=== PATIENT | female | born 1965 | race Two or more races ===

== ENCOUNTER → 2020-07-17 14:16 | Outpatient (BNVA) | payer MEDICAID, SELFPAY | PROVIDERS: PCP Internal Medicine; Visit Provider Nurse Practitioner Family ==

== ENCOUNTER 2020-08-03 14:05 | Outpatient (REF) | payer MEDICAID, SELFPAY | END 2020-08-03 14:06 | disposition home or self-care (01) | LOC: HO.LAB 14:05 | PROVIDERS: Visit Provider Internal Medicine | DX: Z20.822 Contact with and (suspected) exposure to COVID-19 (principal) | CPT/HCPCS: 36415; C9803; U0003; U0005 ==

== ENCOUNTER → 2020-08-07 14:08 | Outpatient (BNVA) | payer MEDICAID, SELFPAY | PROVIDERS: PCP Internal Medicine; Visit Provider Nurse Practitioner Family ==

== ENCOUNTER 2021-04-08 12:52 | Outpatient (REF) | payer MEDICARE, MEDICAID, SELFPAY ==
[2021-04-08 13:55] LABS: Blood Urea Nitrogen 11 mg/dL (9-16); Estimated Glomerular Filt Rate > 60
== END 2021-04-08 12:53 | disposition home or self-care (01) ==
LOC: HO.LAB 12:52
PROVIDERS: PCP Internal Medicine; Visit Provider Surgery Vascular Surgery
DX: I65.23 Occlusion and stenosis of bilateral carotid arteries (principal)
CPT/HCPCS: 36415; 82565; 84520

== ENCOUNTER → 2021-09-18 13:05 | Outpatient (BNVA) | payer MEDICARE, MEDICAID, SELFPAY | PROVIDERS: PCP Internal Medicine; Referring Provider Internal Medicine; Visit Provider Nurse Practitioner Family | DX: K62.5 Hemorrhage of anus and rectum (principal); K59.01 Slow transit constipation | CPT/HCPCS: 99212 ==

== ENCOUNTER → 2021-10-01 10:41 | Outpatient (BNVA) | payer MEDICARE, MEDICAID, SELFPAY | PROVIDERS: PCP Internal Medicine; Referring Provider Internal Medicine; Visit Provider Nurse Practitioner Family | DX: Z13.89 Encounter for screening for other disorder (principal) ==

== ENCOUNTER 2022-07-28 16:56 | Emergency (ER) | payer OTHER, MEDICAID, SELFPAY ==
--- NOTE | ~2022-07-28 | US_ITS ---
EXAMINATION: US PELVIS CLINICAL INFORMATION: Lower abdominal pain COMPARISON: None TECHNIQUE: Ultrasound of the pelvis is performed using both transabdominal and transvaginal transducers along with Doppler. Transvaginal imaging is performed due to inadequate visualization transabdominally. FINDINGS: The uterus measures 4.2 cm in length and 3.1 x 4.4 cm in AP and transverse dimensions. Endometrial stripe measures 0.3 cm in thickness, and there is trace fluid along the endometrial cavity. There is a heterogeneous right-sided uterine mass measuring 1.1 x 0.8 x 1.2 cm, favoring a fibroid. The bilateral ovaries are not visualized on transabdominal or transvaginal imaging. No appreciable free fluid. US/US pelvic and transvaginal IMPRESSION: 1. Trace fluid along the endometrial cavity. 2. Uterine fibroid measuring up to 1.2 cm. 3. Ovaries are not visualized.
--- NOTE | ~2022-07-28 | CT_ITS ---
EXAMINATION: CT ABDOMEN AND PELVIS WITH CONTRAST CLINICAL INFORMATION: CVA tenderness and dysuria COMPARISON: Ultrasound pelvis 07/28/2022 TECHNIQUE: Multidetector volumetric images were obtained from the superior aspect of the liver through the pubic symphysis following administration 85 mL of Omnipaque 350 intravenous contrast. Sagittal and coronal reformatted images were obtained on the technologist's workstation. Oral contrast: No This CT examination was performed using dose optimization techniques as appropriate, variously including the following: *Automated exposure control *Adjustment of mA and/or kV according to patient size (this includes techniques or standardized protocols for targeted exams where dose is matched to indication/reason for exam; i.e. extremities or head) *Use of iterative reconstruction technique DLP: 270 mGy-cm FINDINGS: LUNG BASES: The visualized lung bases are unremarkable. LIVER, GALLBLADDER, AND BILIARY TREE: The liver is normal in size, shape, and attenuation. No focal hepatic lesion or biliary ductal dilatation is present. The gallbladder is unremarkable with no evidence of radiopaque gallstones, gallbladder wall thickening, or obvious pericholecystic inflammatory changes. PANCREAS: Unremarkable. SPLEEN: Unremarkable. ADRENAL GLANDS: Unremarkable. KIDNEYS AND URETERS: The kidneys are normal in size, shape, and attenuation. No hydronephrosis, hydroureter, or calculi seen. No perinephric stranding. BLADDER: Poorly filled GASTROINTESTINAL TRACT: A bowel anastomosis is present in the left lower quadrant there is no evidence of bowel obstruction. The small and large bowel are unremarkable. The appendix is unremarkable. ABDOMINAL WALL: No significant hernia is appreciated. LYMPH NODES: Normal. VASCULAR: Unremarkable. PELVIC VISCERA: Unremarkable. OSSEOUS STRUCTURES: Unremarkable. CT/CT abdomen pelvis w IV con IMPRESSION: A cause for the patient's CVA tenderness and dysuria has not been found. Fleischner guidelines were followed.
[2022-07-28 17:20] VITALS: BP 184/94; PULSE 99; RESP 18; TEMP 36.8; O2SAT 98; BMI 19.2
--- NOTE | 2022-07-28 17:20 | ED.ABDPAIN ---
HPI - Abdominal Pain General Chief Complaint: Abdominal Pain <MIRELLA Mascorro - Last Filed: 07/28/22 17:24> Stated Complaint: lower abd pain <MIRELLA Mascorro - Last Filed: 07/28/22 17:24> Time Seen by Provider: 07/28/22 22:18 <MIRELLA Mascorro - Last Filed: 07/28/22 17:24> Source: patient <MIRELLA Lyn - Last Filed: 07/29/22 01:01> Mode of arrival: ambulatory <MIRELLA Lyn - Last Filed: 07/29/22 01:01> Limitations: no limitations <MIRELLA Lyn Last Filed: 07/29/22 01:01> History of Present Illness HPI narrative: 57-year-old female with history of bowel obstruction, rectal bleeding secondary to hemorrhoids presents with nausea burning with urination that started a few days ago and b/l flank pain and suprapubic abdominal pain and ?pressure in her whole genital area? that started at 02:00 this morning, had similar sx last week they resolved on their own. Patient reports increased urinary urgency and frequency the past 2 days as well. Patient states that the pain is 10/10 and that nothing helps it. Patient has never experienced this before. Patient denies history of kidney stones. Patient denies blood in urine. Patient denies vomiting, headache, chest pain, shortness of breath, bowel changes, fevers, chills, no vaginal discharge. Not sexually active. . <MIRELLA Lyn - Last Filed: 07/29/22 01:01> Related Data Home Medications: Home Medications Medication Instructions Recorded Confirmed albuterol sulfate 90 mcg/actuation inhalation 09/18/21 aerosol inhaler (Ventolin HFA) aspirin 81 mg tablet,delayed 81 mg PO DAILY 09/18/21 release (Adult Aspirin Regimen) jefltsrdnu-kkqclvnzdeljv-ksmtcbqu tab PO 09/18/21 50 mg-325 mg-40 mg tablet fluticasone propionate 44 inhalation 09/18/21 mcg/actuation HFA aerosol inhaler (Flovent HFA) hydrochlorothiazide 12.5 mg tablet mg PO 09/18/21 lidocaine 5 % topical patch patch transdermal 09/18/21 lorazepam 0.5 mg tablet mg PO 09/18/21 naloxone 4 mg/actuation nasal intranasal 09/18/21 spray (Narcan) tramadol 50 mg tablet mg PO 09/18/21 Previous Rx's Medication Instructions Recorded docusate sodium 100 mg capsule 100 mg PO BEDTIME #90 caps 09/18/21 hydrocortisone 2.5 % topical cream 1 appl ME BID-QID PRN hemorrhoids 09/18/21 with perineal applicator #30 grams (Proctosol HC) cefuroxime axetil 250 mg tablet 250 mg PO BID 7 days #14 tabs 07/29/22 <MIRELLA Mascorro - Last Filed: 07/28/22 17:24> Allergies/Adverse Reactions: Allergies Allergy/AdvReac Type Severity Reaction Status Date / Time pneumococcal vaccine Allergy Severe SWELLING Verified 07/28/22 17:25 [PNEUMOCOCCAL VACCINE] topiramate Allergy Mild Unknown Verified 07/28/22 17:25 prednisone [PREDNISONE] AdvReac Unknown NAUSEA & Verified 07/28/22 17:25 VOMITING ANDREA Allergy Mild RASH Uncoded 09/18/21 13:16 <MIRELLA Mascorro - Last Filed: 07/28/22 17:24> Review of Systems Review of Systems Constitutional : No Weight loss, No Fever, No Chills, No Fatigue, No Malaise ENT/Mouth : No sore throat, No Rhinorrhea Eyes: No Eye Pain, No Swelling, No Redness Cardiovascular : No Chest Pain, No SOB, No Dyspnea on Exertion, No Orthopnea, No Edema, No Palpitations Respiratory : No Cough, No Sputum, No Wheezing Gastrointestinal : No Nausea, No Vomiting, No Diarrhea, No Constipation, + abdominal Pain, No Hematochezia, No Melena Genitourinary : + Dysuria, + Urinary Frequency, No Hematuria, Musculoskeletal : No joint pain, No Myalgias, No Joint Swelling Skin : No Skin Lesions, No rash Neuro : No Weakness, No Numbness, No Dizziness, No Headache Psych : No Anxiety/Panic, No Depression All other systems reviewed and are negative <MIRELLA Lyn Last Filed: 07/29/22 01:01> Yes all other systems are reviewed and are negative <MIRELLA Lyn Last Filed: 07/29/22 01:01> PMFSH Past Medical History Attestation statement: The following information was validated with the patient. <MIRELLA Lyn - Last Filed: 07/29/22 01:01> Source: old records reviewed and nursing notes reviewed <MIRELLA Lyn - Last Filed: 07/29/22 01:01> Medical History: Medical History Bowel obstruction <MIRELLA Mascorro - Last Filed: 07/28/22 17:24> Surgical History: Surgical History H/O colonoscopy History of esophagogastroduodenoscopy (EGD) <MIRELLA Mascorro - Last Filed: 07/28/22 17:24> Family History Family History: Family History Maternal Aunt HTN (hypertension) Diabetes Arthritis Asthma Maternal Uncle Arthritis Asthma Diabetes HTN (hypertension) <MIRELLA Mascorro - Last Filed: 07/28/22 17:24> Social History Social History: Social History Household Members: Family Alcohol intake: current Alcohol intake frequency: does not drink Advance Directives: No Advance Directives Information Provided: Yes <MIRELLA Mascorro - Last Filed: 07/28/22 17:24> Physical Exam ED Vital Signs: Vital Signs - 24 hr 07/28/22 17:20 Temperature 98.2 F Pulse Rate 99 Respiratory Rate 18 Blood Pressure 184/94 H Pulse Oximetry 98 Oxygen Delivery Method Room Air BMI result Body Mass Index 19.2 <MIRELLA Mascorro - Last Filed: 07/28/22 17:24> Vital Signs - 24 hr 07/28/22 17:20 Temperature 98.2 F Pulse Rate 99 Respiratory Rate 18 Blood Pressure 184/94 H Pulse Oximetry 98 Oxygen Delivery Method Room Air BMI result Body Mass Index 19.2 vss <MIRELLA Lyn - Last Filed: 07/29/22 01:01> Appearance: Alert.? Oriented X3.? No acute distress.? Head: Normocephalic, atraumatic, no step-offs or deformities Eyes: Pupils equal, round and reactive to light.? ENT: Pharynx normal.? Neck: Normal inspection.? Neck supple.? CVS: Normal heart rate and rhythm.? Pulses normal.? Respiratory: No respiratory distress.? Breath sounds normal.? Abdomen: Soft and + suprapubic abd discomfort .? Skin: Skin warm and dry.? Normal skin color.? Normal skin turgor.? Extremities: No lower extremity edema.? No calf ttp. 5/5 strength to bilateral upper and lower extremities Back: + CVA tenderness bilaterally Sensative exam: deferred patient refusing Neuro: Oriented X 3.? No motor deficit.? No sensory deficit. CN 2-12 intact <MIRELLA Lyn - Last Filed: 07/29/22 01:01> Course Course Course Narrative: RME - 57 y/o female with history of bowel obstruction, rectal bleeding who presents to the ER for evaluation of lower abdominal pain that started 1 week ago, went away and then returned acutely last night. +nausea but no vomiting or diarrhea. Reports the pain is in the suprapubic area, pelvic area and radiates to the rectum. +rectal bleeding with hx hemorrhoids. +dysuria, +hematuria. No vaginal discharge, not sexually active. Plan: will need examination and assessment in main ER - labs and UA ordered. <MIRELLA Mascorro - Last Filed: 07/28/22 17:24> Reevaluation(s) Reevaluation #1: CBC appears to be around patient's baseline. Chemistry with no acute findings requiring intervention. Beta hCG negative. Patient's urine with small amount of leukocyte esterases. Patient is symptomatic will treat for UTI. CT of the abdomen and pelvis unable to identify cause for patient's CVA tenderness and dysuria. Ultrasound pelvic and transvaginal with trace fluid along the endometrial cavity. Uterine fibroid measuring up to 1.2 cm. Ovaries not visualized. Patient reports improving pain however still has some pain. Patient driving will not given narcotic for this reason. She denied bleeding to this TN-C from rectum and from vaginal region. I did discuss this case with my attending doctors Anaya, because on my evaluation patient's pain was very mild to lower abdomen. I do not suspect ovarian torsion. Patient reports diffuse mild pain to lower abdomen, it is not unilateral, low suspicion for acute ovarian torsion. Patient sprain improved with Toradol patient appears comfortable. No need for repeat Doppler study due to patient's presentation, history and low suspicion for torsion. Will have her follow-up with OBGYN. Educated patient on diagnosis and treatment plan, answered all question, patient verbalizes understanding. At this time patient will be discharged home, advised to return with new or worsening symptoms. Educated on worrisome signs and symptoms and when to return. At this time I feel comfortable discharge home. <MIRELLA Lyn - Last Filed: 07/29/22 01:01> Time: 00:32 <MIRELLA Lyn - Last Filed: 07/29/22 01:01> Reevaluation #2: Again at time of discharge patient reports symptomatic improvement tells me it has not completely gone. Refusing a sensitive exam adamantly. I have asked her now 3 x <MIRELLA Lyn - Last Filed: 07/29/22 01:01> Medical Decision Making Medical Decision Making MDM Narrative: 57-year-old female presenting for dysuria, urinary urgency and frequency, abdominal pain, back pain since early this morning. Physical exam significant for CVA tenderness, suprapubic tenderness. Differentials include cystitis versus nephrolithiasis versus pyelonephritis. Unlikley appendicitis, acute abdomen, diverticulitis, pancreatitis Plan: Labs, imaging, pain management <MIRELLA Lyn Last Filed: 07/29/22 01:01> Differential Diagnosis Differential Diagnoses: The differential diagnosis associated with the presentation includes <MIRELLA Lyn Last Filed: 07/29/22 01:01> Differentials include cystitis versus nephrolithiasis versus pyelonephritis. Unlikley appendicitis, acute abdomen, diverticulitis, pancreatitis <MIRELLA Lyn Last Filed: 07/29/22 01:01> Admission/Observation Consideration of admission/observation: Escalation of care including admission/observation considered <MIRELLA Lyn Last Filed: 07/29/22 01:01> Less likely <MIRELLA Lyn - Last Filed: 07/29/22 01:01> Lab Data [facility] Lab Attestation statement: I reviewed the patient's lab results. <MIRELLA Lyn - Last Filed: 07/29/22 01:01> Result Diagrams: 07/28/22 17:48 07/28/22 17:48 <MIRELLA Mascorro - Last Filed: 07/28/22 17:24> Labs: Lab Results 07/28/22 07/28/22 07/28/22 Range/Units 17:48 17:48 23:08 WBC 6.0 (4.8-10.8) X10*3/uL RBC 4.58 (4.20-5.50) X10*6/uL Hgb 13.2 (12.0-16.0) g/dl Hct 40.4 (37.0-47.0) % MCV 88.2 (80.0-98.0) fL MCH 28.8 (27.0-33.0) pg MCHC 32.7 (31.0-35.0) g/dl RDW 12.1 (11.0-16.0) % Plt Count 232 (160-400) X10*3/uL MPV 12.0 (9.4-12.3) fL Immature Gran % (Auto) 0.2 (0.0-0.4) % Neut % (Auto) 58.2 (45-73) % Lymph % (Auto) 29.9 (20-40) % [place] % (Auto) 9.2 (2-11) % Eos % (Auto) 2.0 (0-4) % Baso % (Auto) 0.5 (0-2) % Lymph # (Auto) 1.8 (1.2-4.9) X10*3/uL [place] # (Auto) 0.6 (0.1-1.2) X10*3/uL Eos # (Auto) 0.1 (0.0-0.4) X10*3/uL Baso # (Auto) 0.0 (0.0-0.2) X10*3/uL Abs Immat Gran (auto) 0.01 (0.00-0.03) X10*3/uL Absolute Neuts (auto) 3.5 (2.0-8.3) x10*3/uL Absolute Nucleated RBC 0.000 (0.0-0.012) X10*3/uL Nucleated RBC % (auto) 0.0 (0.0-0.2) /100WBC Sodium 142 (135-145) mmol/L Potassium 3.8 (3.3-5.1) mmol/L Chloride 108 (96-108) mmol/L Carbon Dioxide 23 (22-29) mmol/L Anion Gap 15 (12-20) BUN 16 (9-16) mg/dL Creatinine 0.77 (0.5-1.4) mg/dL Estim Creat Clear Calc 61.3 Estimated GFR > 60 Random Glucose 106 (60-115) mg/dL Calcium 9.3 (8.4-10.2) mg/dL Magnesium 2.3 (1.6-2.6) mg/dL Total Bilirubin 0.4 (0.0-1.0) mg/dL Direct Bilirubin < 0.2 (0.0-0.5) mg/dL AST 20 (5-31) U/L ALT 16 (0-31) U/L Alkaline Phosphatase 108 (39-117) U/L Total Protein 7.2 (6.5-8.0) g/dL Albumin 4.5 (3.5-5.0) g/dL Beta HCG, Quant < 2 mIU/mL Urine Color Yellow Urine Appearance Clear Urine pH 5.0 (5.0-9.0) Ur Specific [place] >= 1.030 H (1.005-1.025) Urine Protein Trace (Neg-Trace) mg/dL Urine Glucose (UA) Negative (Negative) mg/dL Urine Ketones 15 (Negative) mg/dL Urine Blood Negative (Negative) Urine Nitrite Negative (Negative) Ur Leukocyte Esterase Small (1+) H (Negative) Urine RBC 3-5 H (0-2) /HPF Urine WBC 6-10 H (0-5) /HPF Ur Squamous Epith Cells 3-5 (0-2) /HPF Calcium Oxalate Crystal Present Urine Bacteria None Seen (None Seen) Hyaline Casts 0-2 (0-2) /LPF <MIRELLA Mascorro - Last Filed: 07/28/22 17:24> Lab Results 07/28/22 07/28/22 07/28/22 Range/Units 17:48 17:48 23:08 WBC 6.0 (4.8-10.8) X10*3/uL RBC 4.58 (4.20-5.50) X10*6/uL Hgb 13.2 (12.0-16.0) g/dl Hct 40.4 (37.0-47.0) % MCV 88.2 (80.0-98.0) fL MCH 28.8 (27.0-33.0) pg MCHC 32.7 (31.0-35.0) g/dl RDW 12.1 (11.0-16.0) % Plt Count 232 (160-400) X10*3/uL MPV 12.0 (9.4-12.3) fL Immature Gran % (Auto) 0.2 (0.0-0.4) % Neut % (Auto) 58.2 (45-73) % Lymph % (Auto) 29.9 (20-40) % [place] % (Auto) 9.2 (2-11) % Eos % (Auto) 2.0 (0-4) % Baso % (Auto) 0.5 (0-2) % Lymph # (Auto) 1.8 (1.2-4.9) X10*3/uL [place] # (Auto) 0.6 (0.1-1.2) X10*3/uL Eos # (Auto) 0.1 (0.0-0.4) X10*3/uL Baso # (Auto) 0.0 (0.0-0.2) X10*3/uL Abs Immat Gran (auto) 0.01 (0.00-0.03) X10*3/uL Absolute Neuts (auto) 3.5 (2.0-8.3) x10*3/uL Absolute Nucleated RBC 0.000 (0.0-0.012) X10*3/uL Nucleated RBC % (auto) 0.0 (0.0-0.2) /100WBC Sodium 142 (135-145) mmol/L Potassium 3.8 (3.3-5.1) mmol/L Chloride 108 (96-108) mmol/L Carbon Dioxide 23 (22-29) mmol/L Anion Gap 15 (12-20) BUN 16 (9-16) mg/dL Creatinine 0.77 (0.5-1.4) mg/dL Estim Creat Clear Calc 61.3 Estimated GFR > 60 Random Glucose 106 (60-115) mg/dL Calcium 9.3 (8.4-10.2) mg/dL Magnesium 2.3 (1.6-2.6) mg/dL Total Bilirubin 0.4 (0.0-1.0) mg/dL Direct Bilirubin < 0.2 (0.0-0.5) mg/dL AST 20 (5-31) U/L ALT 16 (0-31) U/L Alkaline Phosphatase 108 (39-117) U/L Total Protein 7.2 (6.5-8.0) g/dL Albumin 4.5 (3.5-5.0) g/dL Beta HCG, Quant < 2 mIU/mL Urine Color Yellow Urine Appearance Clear Urine pH 5.0 (5.0-9.0) Ur Specific [place] >= 1.030 H (1.005-1.025) Urine Protein Trace (Neg-Trace) mg/dL Urine Glucose (UA) Negative (Negative) mg/dL Urine Ketones 15 (Negative) mg/dL Urine Blood Negative (Negative) Urine Nitrite Negative (Negative) Ur Leukocyte Esterase Small (1+) H (Negative) Urine RBC 3-5 H (0-2) /HPF Urine WBC 6-10 H (0-5) /HPF Ur Squamous Epith Cells 3-5 (0-2) /HPF Calcium Oxalate Crystal Present Urine Bacteria None Seen (None Seen) Hyaline Casts 0-2 (0-2) /LPF <MIRELLA Lyn - Last Filed: 07/29/22 01:01> Independent Interpretation I performed an independent interpretation of an: Ultrasound (US/US pelvic and transvaginal IMPRESSION: 1. Trace fluid along the endometrial cavity. 2. Uterine fibroid measuring up to 1.2 cm. 3. Ovaries are not visualized. ) <MIRELLA Lyn - Last Filed: 07/29/22 01:01> Radiology Impression Discussion of test interpretation with radiology: I have reviewed the radiologist's reading. <MIRELLA Lyn - Last Filed: 07/29/22 01:01> External Record Review External record reviewed: Inpatient record, Office record, Outpatient record, Prior outpatient labs, Prior outpatient radiology, Primary care record and Outside ED record <MIRELLA Lyn - Last Filed: 07/29/22 01:01> Core Measures AMI core measures followed: Yes <MIRELLA Lyn - Last Filed: 07/29/22 01:01> Measure exclusions: not indicated <MIRELLA Lyn - Last Filed: 07/29/22 01:01> Medications Administered Discontinued Medications Generic Name Dose Route Start Last Admin Trade Name Freq PRN Reason Stop Dose Admin Iohexol 85 ml 07/28/22 23:43 07/28/22 23:47 Iohexol 350 Mg/Ml 100 Ml Infus..Btl IV 07/28/22 23:44 85 ml ONCE ONE Administration Ketorolac Tromethamine 30 mg 07/28/22 22:46 07/28/22 22:59 Ketorolac Tromethamine 15 Mg/Ml Vial IM 07/28/22 22:47 30 mg ONCE ONE Administration <MIRELLA Mascorro - Last Filed: 07/28/22 17:24> Medications Administered Discontinued Medications Generic Name Dose Route Start Last Admin Trade Name Freq PRN Reason Stop Dose Admin Iohexol 85 ml 07/28/22 23:43 07/28/22 23:47 Iohexol 350 Mg/Ml 100 Ml Infus..Btl IV 07/28/22 23:44 85 ml ONCE ONE Administration Ketorolac Tromethamine 30 mg 07/28/22 22:46 07/28/22 22:59 Ketorolac Tromethamine 15 Mg/Ml Vial IM 07/28/22 22:47 30 mg ONCE ONE Administration <MIRELLA Lyn - Last Filed: 07/29/22 01:01> Critical Care Time Critical Care Time Critical Care Time: No <MIRELLA Lyn - Last Filed: 07/29/22 01:01> Discharge Plan Discharge Clinical Impression: Abdominal pain, UTI symptoms <MIRELLA Mascorro - Last Filed: 07/28/22 17:24> Patient Disposition: Home, Self-Care <MIRELLA Mascorro - Last Filed: 07/28/22 17:24> Instructions: Abdominal Pain (ED) <MIRELLA Mascorro - Last Filed: 07/28/22 17:24> Additional Instructions: Take your medications as prescribed. If you were prescribed antibiotics today, it is important that you take your medication to their entirety, do not skip any doses, do not finish them early. Follow-up with your primary care provider this week. Follow up with OBGYN and GI Return to the emergency department with new or worsening symptoms. Such as fevers, chills, chest pain, shortness of breath, nausea, vomiting, dizziness, headache, vision changes, lethargy In case of emergency call 911 <MIRELLA Mascorro - Last Filed: 07/28/22 17:24> Prescriptions: New cefuroxime axetil 250 mg tablet 250 mg PO BID 7 Days Qty: 14 0RF No Action aspirin [Adult Aspirin Regimen] 81 mg tablet,delayed release (DR/EC) 81 mg PO DAILY ogwrpctnqd-rykleierymyqu-lajd 50-325-40 mg tablet PO tramadol 50 mg tablet PO Flovent HFA 44 mcg/actuation HFA aerosol inhaler inhalation naloxone [Narcan] 4 mg/actuation spray,non-aerosol intranasal hydrochlorothiazide 12.5 mg tablet PO lidocaine 5 % adhesive patch,medicated transdermal lorazepam 0.5 mg tablet PO albuterol sulfate [Ventolin HFA] 90 mcg/actuation HFA aerosol inhaler inhalation docusate sodium 100 mg capsule 100 mg PO BEDTIME Qty: 90 3RF hydrocortisone [Proctosol HC] 2.5 % cream with perineal applicator 1 appl ME BID-QID PRN (Reason: hemorrhoids) Qty: 30 0RF <MIRELLA Mascorro - Last Filed: 07/28/22 17:24> [place] [facility] [place] [facility] [place]Provider Group] - 2 days Janey Barron FNP [Primary Care Provider] - 2 days <MIRELLA Mascorro - Last Filed: 07/28/22 17:24> Stand Alone Forms: Work/School Release <MIRELLA Mascorro - Last Filed: 07/28/22 17:24>
[2022-07-28 17:52] LABS: MANUAL DIFF FLAG NO
[2022-07-28 18:14] LABS: Alanine Aminotransferase 16 U/L (0-31); Albumin Level 4.5 g/dL (3.5-5.0); Alkaline Phosphatase 108 U/L (39-117); Anion Gap 15 (12-20); Aspartate Amino Transferase 20 U/L (5-31); Bilirubin Direct < 0.2 mg/dL (0.0-0.5); Bilirubin Total 0.4 mg/dL (0.0-1.0); Blood Urea Nitrogen 16 mg/dL (9-16); Calcium 9.3 mg/dL (8.4-10.2); Carbon Dioxide 23 mmol/L (22-29); Chloride 108 mmol/L (96-108); Creatinine Clr Calc Pharmacy 61.3; Estimated Glomerular Filt Rate > 60; Glucose Random 106 mg/dL (60-115); Magnesium 2.3 mg/dL (1.6-2.6); Potassium 3.8 mmol/L (3.3-5.1); Sodium 142 mmol/L (135-145); Total Protein 7.2 g/dL (6.5-8.0)
[2022-07-28 18:18] LABS: Basophils Percent Auto 0.5 % (0-2); Eosinophils Absolute Auto 0.1 X10*3/uL (0.0-0.4); Hematocrit 40.4 % (37.0-47.0); Hemoglobin 13.2 g/dl (12.0-16.0); Imm Gran Abs Auto 0.01 X10*3/uL (0.00-0.03); Imm Gran Pct Auto 0.2 % (0.0-0.4); Lymphocytes Absolute Auto 1.8 X10*3/uL (1.2-4.9); Lymphocytes Percent Auto 29.9 % (20-40); Mean Corpuscular HGB Conc 32.7 g/dl (31.0-35.0); Mean Corpuscular Hemoglobin 28.8 pg (27.0-33.0); Mean Corpuscular Volume 88.2 fL (80.0-98.0); Monocytes Absolute Auto 0.6 X10*3/uL (0.1-1.2); Monocytes Percent Auto 9.2 % (2-11); Neutrophils Absolute Auto 3.5 x10*3/uL (2.0-8.3); Neutrophils Percent Auto 58.2 % (45-73); Platelet Count 232 X10*3/uL (160-400); Red Blood Count 4.58 X10*6/uL (4.20-5.50); Red Cell Distribution Width 12.1 % (11.0-16.0)
[2022-07-28] MEDS: Ketorolac Tromethamine 15 MG/ML VIAL 30 MG IM (22:59)
[2022-07-28 23:10] LABS: HCG Quantitative < 2 mIU/mL
[2022-07-28 23:17] LABS: Appearance Urine Clear; Color Urine Yellow; Glucose Urine UA Negative (Negative); Leukocyte Esterase Urine Small (1+) (Negative); Nitrite Urine Negative (Negative); Specific Gravity - Urine >= 1.030 (1.005-1.025); UMIC TRIGGER UACC YES; Urine Blood Negative (Negative); Urine Ketones 15 mg/dL (Negative); Urine Protein Trace mg/dL (Neg-Trace)
[2022-07-28 23:27] LABS: Bacteria Urine None Seen (None Seen); Calcium Oxalate Crystals Urine Present; Hyaline Casts Urine 0-2 /LPF (0-2); UACC Culture Trigger YES
[2022-07-28] MEDS: iohexoL 350 MG/ML 100 ML INFUS..BTL 85 ML IV (23:47)
[2022-07-29 01:03] VITALS: RESP 16
== END 2022-07-29 01:04 | disposition home or self-care (01) ==
PROVIDERS: Physician Assistant; Emergency Provider Internal Medicine; PCP Registered Nurse
DX: R10.30 Lower abdominal pain, unspecified (principal); N39.0 Urinary tract infection, site not specified; D25.9 Leiomyoma of uterus, unspecified; R31.9 Hematuria, unspecified; K62.5 Hemorrhage of anus and rectum; Z79.82 Long term (current) use of aspirin; Z79.899 Other long term (current) drug therapy
CPT/HCPCS: 36415; 74177; 76830; 76856; 80048; 80076; 81001; 83735; 84702; 85025; 87086; 87147; 96372; 99284; J1885; Q9967

== ENCOUNTER 2023-01-27 09:21 | Outpatient (REF) | payer OTHER, MEDICAID, SELFPAY ==
[2023-01-27 11:45] LABS: MANUAL DIFF FLAG NO
[2023-01-27 11:59] LABS: Basophils Percent Auto 0.5 % (0-2); Eosinophils Absolute Auto 0.2 X10*3/uL (0.0-0.4); Eosinophils Percent Auto 3.1 % (0-4); Hematocrit 40.1 % (37.0-47.0); Hemoglobin 12.4 g/dl (12.0-16.0); Imm Gran Abs Auto 0.01 X10*3/uL (0.00-0.03); Imm Gran Pct Auto 0.2 % (0.0-0.4); Lymphocytes Absolute Auto 1.7 X10*3/uL (1.2-4.9); Lymphocytes Percent Auto 30.5 % (20-40); Mean Corpuscular HGB Conc 30.9 g/dl (31.0-35.0); Mean Corpuscular Hemoglobin 28.1 pg (27.0-33.0); Mean Corpuscular Volume 90.7 fL (80.0-98.0); Mean Platelet Volume 12.3 fL (9.4-12.3); Monocytes Absolute Auto 0.4 X10*3/uL (0.1-1.2); Monocytes Percent Auto 7.1 % (2-11); Neutrophils Absolute Auto 3.2 x10*3/uL (2.0-8.3); Neutrophils Percent Auto 58.6 % (45-73); Platelet Count 234 X10*3/uL (160-400); Red Blood Count 4.42 X10*6/uL (4.20-5.50); Red Cell Distribution Width 12.6 % (11.0-16.0); White Blood Count 5.5 X10*3/uL (4.8-10.8)
== END 2023-01-27 09:22 | disposition home or self-care (01) ==
LOC: HO.HHCL 09:21
PROVIDERS: Visit Provider Registered Nurse
DX: K62.5 Hemorrhage of anus and rectum (principal)
CPT/HCPCS: 36415; 85025

== ENCOUNTER 2023-02-25 07:48 | Outpatient (REF) | payer OTHER, MEDICAID, SELFPAY ==
--- NOTE | ~2023-02-25 | CT_ITS ---
EXAMINATION: CT HEAD WITHOUT CONTRAST CLINICAL INFORMATION: Headaches. COMPARISON: Head CT dated 06/02/2019. TECHNIQUE: Contiguous axial imaging was performed from the skullbase to vertex without intravenous administration of contrast. This CT examination was performed using dose optimization techniques as appropriate, variously including the following: *Automated exposure control *Adjustment of mA and/or kV according to patient size (this includes techniques or standardized protocols for targeted exams where dose is matched to indication/reason for exam; i.e. extremities or head) *Use of iterative reconstruction technique DLP: 614 mGy-cm. FINDINGS: There is no evidence of acute intracranial hemorrhage or territorial infarction. No abnormal mass effect or midline shift is seen. Castellanos to white matter differentiation is well preserved. No extra-axial fluid collections are identified. The ventricles are normal in size. There is no abnormal attenuation within the brain parenchyma. The osseous structures and soft tissues are normal. The mastoid air cells and visualized portions of the paranasal sinuses are well aerated. CT/CT head/brain wo IV con IMPRESSION: No acute intracranial pathology.
== END 2023-02-25 07:49 | disposition home or self-care (01) ==
LOC: HO.CT 07:48
PROVIDERS: PCP Registered Nurse; Visit Provider Registered Nurse
DX: R51.9 Headache, unspecified (principal)
CPT/HCPCS: 70450

== ENCOUNTER 2023-08-27 18:46 | Emergency (ER) | payer OTHER, MEDICAID, SELFPAY ==
--- NOTE | 2023-08-27 18:57 | ECG_ITS ---
Test Reason : CHEST PAIN Blood Pressure : / mmHG Vent. Rate : 087 BPM Atrial Rate : 087 BPM P-R Int : 158 ms QRS Dur : 076 ms QT Int : 382 ms P-R-T Axes : 084 049 040 degrees QTc Int : 459 ms Normal sinus rhythm Normal ECG When compared with ECG of 15-JUL-2019 16:11, T wave inversion no longer evident in Anterior leads Referred By: Estefania Houser Electronically Signed By:Rambo Myrick
[2023-08-27 18:59] VITALS: BP 160/97; PULSE 90; RESP 17; TEMP 36.9; O2SAT 99; BMI 23.8
[2023-08-27 19:28] LABS: MANUAL DIFF FLAG NO
[2023-08-27 19:34] LABS: Basophils Percent Auto 0.4 % (0-2); Eosinophils Absolute Auto 0.1 X10*3/uL (0.0-0.4); Eosinophils Percent Auto 1.3 % (0-4); Hematocrit 40.8 % (37.0-47.0); Hemoglobin 13.1 g/dl (12.0-16.0); Imm Gran Abs Auto 0.01 X10*3/uL (0.00-0.03); Imm Gran Pct Auto 0.1 % (0.0-0.4); Lymphocytes Absolute Auto 1.9 X10*3/uL (1.2-4.9); Lymphocytes Percent Auto 24.7 % (20-40); Mean Corpuscular HGB Conc 32.1 g/dl (31.0-35.0); Mean Corpuscular Hemoglobin 28.4 pg (27.0-33.0); Mean Corpuscular Volume 88.3 fL (80.0-98.0); Mean Platelet Volume 10.9 fL (9.4-12.3); Monocytes Absolute Auto 0.6 X10*3/uL (0.1-1.2); Monocytes Percent Auto 8.4 % (2-11); Neutrophils Absolute Auto 4.9 x10*3/uL (2.0-8.3); Neutrophils Percent Auto 65.1 % (45-73); Platelet Count 348 X10*3/uL (160-400); Red Blood Count 4.62 X10*6/uL (4.20-5.50); Red Cell Distribution Width 12.3 % (11.0-16.0); White Blood Count 7.5 X10*3/uL (4.8-10.8)
[2023-08-27 19:48] LABS: Alanine Aminotransferase 18 U/L (0-31); Albumin Level 4.3 g/dL (3.5-5.0); Alkaline Phosphatase 122 U/L (39-117); Anion Gap 18 (12-20); Aspartate Amino Transferase 22 U/L (5-31); Bilirubin Total 0.2 mg/dL (0.0-1.0); Blood Urea Nitrogen 17 mg/dL (9-16); Calcium 9.5 mg/dL (8.4-10.2); Carbon Dioxide 25 mmol/L (22-29); Chloride 103 mmol/L (96-108); Creatinine Clr Calc Pharmacy 71.1; Estimated Glomerular Filt Rate > 60; Glucose Random 103 mg/dL (60-115); Magnesium 2.5 mg/dL (1.6-2.6); Potassium 3.9 mmol/L (3.3-5.1); Sodium 142 mmol/L (135-145); Total Protein 7.4 g/dL (6.5-8.0)
[2023-08-27 19:57] LABS: Troponin-I High Sensitivity < 2.7 ng/L (<3.5-17.0)
[2023-08-27 23:01] VITALS: BP 172/79; PULSE 78; RESP 18; TEMP 36.7; O2SAT 99
--- NOTE | 2023-08-28 02:43 | PC.NURSE ---
pt with pt in the waiting room during role call and pt was in no distress and left shortly after.
== END 2023-08-28 02:44 | disposition left against medical advice (07) ==
PROVIDERS: Physician Assistant Medical; Emergency Provider Emergency Medicine; PCP Registered Nurse
DX: R07.9 Chest pain, unspecified (principal); R20.0 Anesthesia of skin
CPT/HCPCS: 36415; 80053; 83735; 84484; 85025; 85610; 93005; 99283

== ENCOUNTER → 2023-08-27 18:57 | Outpatient (BNV) | payer OTHER, MEDICAID, SELFPAY | PROVIDERS: Emergency Provider Emergency Medicine; PCP Registered Nurse; Visit Provider Internal Medicine Cardiovascular Disease | DX: R07.9 Chest pain, unspecified (principal) | CPT/HCPCS: 93010 ==